=== PATIENT | male | born 1945 | race Caucasian/White ===

== ENCOUNTER 2022-11-16 13:43 | Emergency (ER) | payer MEDICARE ==
[2022-11-16 15:17] LABS: BASOPHILS PERCENT AUTO 0.3 % (0.1-1.3); HEMOGLOBIN 11.6 g/dL (12.9-16.9); IMMATURE GRAN PERCENT AUTO 0.3 % (0.0-0.7); LYMPHOCYTES ABSOLUTE AUTO 2.09 K/uL (0.8-3.3); LYMPHOCYTES PERCENT AUTO 31.1 % (11.4-47.7); MEAN CORPUSCULAR HEMOGLOBIN 29.8 pg (31.6-35.5); MEAN CORPUSCULAR HGB CONC 34.1 g/dL (31.6-35.5); MEAN CORPUSCULAR VOLUME 87.4 fL (81.4-99.0); MONOCYTES ABSOLUTE AUTO 0.45 K/uL (0.20-0.90); MONOCYTES PERCENT AUTO 6.7 % (3.3-12.6); NEUTROPHILS ABSOLUTE AUTO 3.93 K/uL (1.0-7.6); NEUTROPHILS PERCENT AUTO 58.6 % (40.0-78.1); PLATELET COUNT,PLT 177 K/uL (130-375); RED BLOOD CELL COUNT 3.89 M/uL (4.14-5.76); WHITE BLOOD CELL COUNT,WBC 6.7 K/uL (3.2-11.0)
[2022-11-16 15:19] LABS: BASOPHILS ABSOLUTE AUTO 0.02 K/uL (0.00-0.10); IMMATURE GRAN ABSOLUTE AUTO 0.02 K/uL (0.00-0.23)
== END 2022-11-16 16:50 | disposition home or self-care (01) ==
LOC: JP.ED 13:43
DX: K62.5 Hemorrhage of anus and rectum (principal); E78.00 Pure hypercholesterolemia, unspecified; I10 Essential (primary) hypertension; E11.9 Type 2 diabetes mellitus without complications; Z79.82 Long term (current) use of aspirin; Z79.899 Other long term (current) drug therapy
CPT/HCPCS: 36415; 85025; 99283

== ENCOUNTER 2022-11-19 08:43 | Day surgery (SDC) | payer MEDICARE ==
[~2022-11-19 08:43] MED LIST: Propofol 200 MG/20 ML SDV ONE
[2022-11-19] MEDS: Dextrose 5%-Lactated Ringers 1,000 ML IV SCH (09:45)
[2022-11-19] MEDS ORDERED: fentaNYL 100 MCG/2 ML SDV ONE (09:54)
[2022-11-19] MEDS ORDERED: Propofol 200 MG/20 ML SDV ONE (09:54)
== END 2022-11-19 11:55 | disposition home or self-care (01) ==
LOC: JP.SDS 08:43
PROVIDERS: ATTEND Surgery
DX: K57.30 Diverticulosis of large intestine without perforation or abscess without bleeding (principal); K44.9 Diaphragmatic hernia without obstruction or gangrene; E11.9 Type 2 diabetes mellitus without complications; C61 Malignant neoplasm of prostate; I10 Essential (primary) hypertension; Z79.899 Other long term (current) drug therapy
CPT/HCPCS: 43239; G0121; J2704; J3010; J7121